=== PATIENT | female | born 1990 | race Caucasian/White ===

== ENCOUNTER → 2016-05-11 | Outpatient (CLI) | payer MEDICAID ==
[~2016-05-11] MED LIST: BLOOD GLUCOSE T1 TES; FLUC150T PO; GLYB2.5T3 PO; IBUP-232 PO; LANC1MIS74; METF500T PO; MILKSUS PO; ONETKIT; OXYC1TAB63 PO; PREN1CAP20; SENN1TAB PO
== END ==
LOC: CDED 08:18
PROVIDERS: ATTEND Obstetrics & Gynecology
DX: O24.419 Gestational diabetes mellitus in pregnancy, unspecified control (principal)
CPT/HCPCS: 97802

== ENCOUNTER → 2016-05-18 | Outpatient (CLI) | payer MEDICAID | LOC: HPND 08:00 | PROVIDERS: ATTEND Obstetrics & Gynecology | DX: O24.410 Gestational diabetes mellitus in pregnancy, diet controlled (principal); Z3A.00 Weeks of gestation of pregnancy not specified | CPT/HCPCS: 76816 ==

== ENCOUNTER 2016-07-23 14:33 | Inpatient (IN) | payer MEDICAID ==
[2016-07-23] VITALS (30 sets, daily range): BP systolic 102–143; BP diastolic 54–93; PULSE 65–91; RESP 16–20; TEMP 98.3–98.7
[~2016-07-23 14:33] MED LIST changes: -FLUC150T PO; -IBUP-232 PO; -METF500T PO; -OXYC1TAB63 PO; -SENN1TAB PO
[2016-07-23] MEDS ORDERED: LACTATED RINGER'S 1000 ML INJ 1,000 ML IV PRN (15:28)
[2016-07-23] MEDS ORDERED: LACTATED RINGER'S 1000 ML INJ 1,000 ML IV SCH (15:28)
[2016-07-23] MEDS ORDERED: SODIUM CHLORID 0.9% 500 ML INJ 500 ML IV PRN (15:30)
[2016-07-23] MEDS ORDERED: OXYTOCIN 30 UNITS-500ML PREMIX 500 ML IV ONE (15:30)
[2016-07-23] MEDS ORDERED: LIDOCAINE HCL 1% 50 ML VIAL I-DERMAL PRN (15:30)
[2016-07-23] MEDS ORDERED: MINERAL OIL 10 ML VIAL TOPICAL PRN (15:30)
[2016-07-23] MEDS ORDERED: ONDANSETRON HCL 4 MG/2 ML VIAL IV PRN (15:30)
[2016-07-23] MEDS ORDERED: CITRIC ACID-SODIUM CITRATE LIQ 30 ML UDC PO SCH (15:30)
[2016-07-23] MEDS ORDERED: LIDOCAINE HCL 1% 50 ML VIAL INFIL PRN (15:30)
--- NOTE | 2016-07-23 15:32 | PD ---
HPI Chief Complaint contractions Date Seen: Jul 23, 2016 Travel History International Travel<30 Days: No Contact w/Intl Traveler<30Days: No Known Affected Area: No History of Present Illness HPI 25 yo @ 39w4d with LOIS 07-26-2016. care with [facility]. complicated by GDM. She is diet controlled, but takes Glyburide PRN at night. She had normal testing and recent US with EFW 6+lbs. Presents with c/o contractions for past few hours, every 5 min now. No LOF, VB. +FM. GBS negative. History Past Medical History Narrative Medical GDM this only Obstetric History Obstetric History uncomplicated, 8lb 10oz SAB x 1 Past Surgical History Narrative Surgical appendectomy Family History Family History: Negative Social History Alcohol Use: No Tobacco Use: No Substance Abuse: No Allergies-Medications (Allergen,Severity, Reaction): Coded Allergies: Ceclor (Verified Allergy, Unknown, unknown rxn, 07/23/16) Home Meds Active Scripts Glyburide 2.5 Mg Tab2.5 Mg PO DAILY #30 TAB Ref 0 Take with meals at the same time each day Prov:Demarcus Moreland MD 06/28/16 Blood Glucose Test Strips 1 Molly Molly #100 EA .ROUTE DIRECTED Ref 0 Prov:Candace Lewis CNMP 06/08/16 Onetouch Ultra Mini W/Device 1 Kit Kit #1 KIT .ROUTE DIRECTED Ref 0 Prov:Candace Lewis CNM 05/11/16 Onetouch Delica Lancets E 1 Mis Mis #100 EA .ROUTE DIRECTED Ref 3 Prov:Candace Lewis CNMP 05/11/16 Reported Medications Magnesium Hydroxide Liq (Milk of Magnesia Liq)400 Mg/5 Ml Susp30 Ml PO Q6H PRN ( CONSTIPATION) #1 BOTTLE Ref 0 06/28/16 W/O Vit A W/ Fe Carbo (Prenate Mini 18-0.6-0.4-350 mg)1 Cap Cap 02/16/16 Review of Systems General / Constitutional: No: Fever, Chills HENT: No: Headaches, Lightheadedness Cardiovascular: No: Irregular Rhythm, Chest Pain or Discomfort, Palpitations Respiratory: No: Cough, Short of Breath Gastrointestinal: Abdominal Pain (contractions), No: Nausea, Vomiting, Diarrhea Genitourinary: No: Urgency, Frequency, Dysuria Musculoskeletal: No: Limited ROM, Weakness Skin: No Rash, No Itching, No Lesions Neurologic: No: Focal Abnormalities, Coordination Problem Psychiatric: No: Anxiety, Depression Physical Exam Vital Signs Date Time Temp Pulse Resp B/P Pulse Ox O2 Delivery O2 Flow Rate FiO2 07/23/16 14:52 84 131/76 07/23/16 14:51 16 07/23/16 14:51 98.3 Narrative GENERAL: Well-nourished, well-developed patient. SKIN: Warm and dry. HEAD: Normocephalic and atraumatic. EYES: No scleral icterus. No injection or drainage. ENT: No nasal drainage noted. Mucous membranes pink. Airway patent. NECK: No JVD. CARDIOVASCULAR: Regular rate RESPIRATORY: No accessory muscle use. ABDOMEN/GI: Abdomen soft, non-tender, no rebound, no guarding Gravid EFW 3500g GENITOURINARY: External Genitalia: intact and normal in appearance SVE 4-5cm/60%/-3 prior; exam 3cm in clinic TOCO: q 5 min. Palpate moderate FHT's: Category: I Baseline: 135 Reactive: +accelerations Variability: mod Decels: [-] EXTREMITIES: No cyanosis or edema. BACK: Nontender without obvious deformity. Normal ROM NEUROLOGICAL: Awake and alert. Motor and sensory grossly within normal limits.Normal speech. Data Data Vital Signs Reviewed: Yes Orders Vital Signs (Adult) .ON ADMISSION (07/23/16 14:38) ^ Labor Status (07/23/16 14:38) ^ Non Stress Test (07/23/16 14:38) Urinalysis - C+S If Indicated (07/23/16 15:11) Ob (2e) Additional Admit Info (07/23/16 15:11) Admit To Inpatient (07/23/16 ) Code Status (07/23/16 15:28) Vital Signs (Adult) .Per protocol (07/23/16 15:28) Activity Oob Ad Sofi (07/23/16 15:28) Heart (07/23/16 15:28) Amnioinfusion (07/23/16 15:28) Urinary Catheter Management .ONCE (07/23/16 15:28) Diet Liquid (07/23/16 Dinner) Lactated Ringer's 1000 Ml Inj (Lr 1000 M (07/23/16 15:28) Lactated Ringer's 1000 Ml Inj (Lr 1000 M (07/23/16 15:28) Sodium Chlorid 0.9% 500 Ml Inj (Ns 500 M (07/23/16 15:30) Sodium Chlor 0.9% 1000 Ml Inj (Ns 1000 M (07/23/16 15:48) Lidocaine 1% Inj (50 Ml) (Xylocaine 1% I (07/23/16 15:30) Citric Acid-Sodium Citrate Liq (Bicitra (07/23/16 15:30) Ondansetron Inj (Zofran Inj) (07/23/16 15:30) Fentanyl Inj (Fentanyl Inj) (07/23/16 15:30) Fentanyl Inj (Fentanyl Inj) (07/23/16 15:30) Complete Blood Count With Diff (07/23/16 15:28) Hold Clot (07/23/16 15:28) Abo/Rh Blood Type (07/23/16 15:28) Resp Oxygen Non Rebreathe Mask (07/23/16 ) ^ Epidural / Intrathecal Infus (07/23/16 15:28) Oxytocin 30 Units-500ml Premix (Pitocin (07/23/16 15:30) Lidocaine 1% Inj (50 Ml) (Xylocaine 1% I (07/23/16 15:30) Light Mineral Oil (Muri-Lube Oil) (07/23/16 15:30) Inpatient Certification (07/23/16 ) Bedside Glucose DENA.AC&HS (07/23/16 15:28) Labs Vital Signs Date Time Temp Pulse Resp B/P Pulse Ox O2 Delivery O2 Flow Rate FiO2 07/23/16 14:52 84 131/76 07/23/16 14:51 16 07/23/16 14:51 98.3 MDM Medical Record Reviewed: Yes Narrative Course / MDM 39 weeks GDM Early active labor CAT I FHT Plan Admit Expectant management Bedside Glucose - 109 Epidural when indicated Patient Instructions: General Instructions Departure Forms: Tests/Procedures Kathy Bess MD Jul 23, 2016 15:32
--- NOTE | 2016-07-23 15:41 | HHI.HP ---
History & Physical H&P HPI HPI Chief Complaint contractions Date Seen: Jul 23, 2016 Travel History International Travel<30 Days: No Contact w/Intl Traveler<30Days: No Known Affected Area: No History of Present Illness HPI 25 yo @ 39w4d with LOIS 07-26-2016. care with [facility]. complicated by GDM. She is diet controlled, but takes Glyburide PRN at night. She had normal testing and recent US with EFW 6+lbs. Presents with c/o contractions for past few hours, every 5 min now. No LOF, VB. +FM. GBS negative. History (Limited) History Past Medical History Narrative Medical GDM this only Obstetric History Obstetric History uncomplicated, 8lb 10oz SAB x 1 Past Surgical History Narrative Surgical appendectomy Family History Family History: Negative Social History Alcohol Use: No Tobacco Use: No Substance Abuse: No Allergies-Medications Allergies-Medications (Allergen,Severity, Reaction): Coded Allergies: Ceclor (Verified Allergy, Unknown, unknown rxn, 07/23/16) Home Meds Active Scripts Glyburide 2.5 Mg Tab2.5 Mg PO DAILY #30 TAB Ref 0 Take with meals at the same time each day Prov:Demarcus Moreland MD 06/28/16 Blood Glucose Test Strips 1 Molly Molly #100 EA .ROUTE DIRECTED Ref 0 Prov:Candace Lewis CNMP 06/08/16 Onetouch Ultra Mini W/Device 1 Kit Kit #1 KIT .ROUTE DIRECTED Ref 0 Prov:Candace Lewis CNM 05/11/16 Onetouch Delica Lancets E 1 Mis Mis #100 EA .ROUTE DIRECTED Ref 3 Prov:Candace Lewis CNMP 05/11/16 Reported Medications Magnesium Hydroxide Liq (Milk of Magnesia Liq)400 Mg/5 Ml Susp30 Ml PO Q6H PRN ( CONSTIPATION) #1 BOTTLE Ref 0 06/28/16 W/O Vit A W/ Fe Carbo (Prenate Mini 18-0.6-0.4-350 mg)1 Cap Cap 02/16/16 ROS Review of Systems General / Constitutional: No: Fever, Chills HENT: No: Headaches, Lightheadedness Cardiovascular: No: Irregular Rhythm, Chest Pain or Discomfort, Palpitations Respiratory: No: Cough, Short of Breath Gastrointestinal: Abdominal Pain (contractions), No: Nausea, Vomiting, Diarrhea Genitourinary: No: Urgency, Frequency, Dysuria Musculoskeletal: No: Limited ROM, Weakness Skin: No Rash, No Itching, No Lesions Neurologic: No: Focal Abnormalities, Coordination Problem Psychiatric: No: Anxiety, Depression Physical Exam Physical Exam Vital Signs Date Time Temp Pulse Resp B/P Pulse Ox O2 Delivery O2 Flow Rate FiO2 07/23/16 14:52 84 131/76 07/23/16 14:51 16 07/23/16 14:51 98.3 Narrative GENERAL: Well-nourished, well-developed patient. SKIN: Warm and dry. HEAD: Normocephalic and atraumatic. EYES: No scleral icterus. No injection or drainage. ENT: No nasal drainage noted. Mucous membranes pink. Airway patent. NECK: No JVD. CARDIOVASCULAR: Regular rate RESPIRATORY: No accessory muscle use. ABDOMEN/GI: Abdomen soft, non-tender, no rebound, no guarding Gravid EFW 3500g GENITOURINARY: External Genitalia: intact and normal in appearance SVE 4-5cm/60%/-3 prior; exam 3cm in clinic TOCO: q 5 min. Palpate moderate FHT's: Category: I Baseline: 135 Reactive: +accelerations Variability: mod Decels: [-] EXTREMITIES: No cyanosis or edema. BACK: Nontender without obvious deformity. Normal ROM NEUROLOGICAL: Awake and alert. Motor and sensory grossly within normal limits.Normal speech. Data Data Data Vital Signs Reviewed: Yes Orders Vital Signs (Adult) .ON ADMISSION (07/23/16 14:38) ^ Labor Status (07/23/16 14:38) ^ Non Stress Test (07/23/16 14:38) Urinalysis - C+S If Indicated (07/23/16 15:11) Ob (2e) Additional Admit Info (07/23/16 15:11) Admit To Inpatient (07/23/16 ) Code Status (07/23/16 15:28) Vital Signs (Adult) .Per protocol (07/23/16 15:28) Activity Oob Ad Sofi (07/23/16 15:28) Heart (07/23/16 15:28) Amnioinfusion (07/23/16 15:28) Urinary Catheter Management .ONCE (07/23/16 15:28) Diet Liquid (07/23/16 Dinner) Lactated Ringer's 1000 Ml Inj (Lr 1000 M (07/23/16 15:28) Lactated Ringer's 1000 Ml Inj (Lr 1000 M (07/23/16 15:28) Sodium Chlorid 0.9% 500 Ml Inj (Ns 500 M (07/23/16 15:30) Sodium Chlor 0.9% 1000 Ml Inj (Ns 1000 M (07/23/16 15:48) Lidocaine 1% Inj (50 Ml) (Xylocaine 1% I (07/23/16 15:30) Citric Acid-Sodium Citrate Liq (Bicitra (07/23/16 15:30) Ondansetron Inj (Zofran Inj) (07/23/16 15:30) Fentanyl Inj (Fentanyl Inj) (07/23/16 15:30) Fentanyl Inj (Fentanyl Inj) (07/23/16 15:30) Complete Blood Count With Diff (07/23/16 15:28) Hold Clot (07/23/16 15:28) Abo/Rh Blood Type (07/23/16 15:28) Resp Oxygen Non Rebreathe Mask (07/23/16 ) ^ Epidural / Intrathecal Infus (07/23/16 15:28) Oxytocin 30 Units-500ml Premix (Pitocin (07/23/16 15:30) Lidocaine 1% Inj (50 Ml) (Xylocaine 1% I (07/23/16 15:30) Light Mineral Oil (Muri-Lube Oil) (07/23/16 15:30) Inpatient Certification (07/23/16 ) Bedside Glucose DENA.AC&HS (07/23/16 15:28) Labs Vital Signs Date Time Temp Pulse Resp B/P Pulse Ox O2 Delivery O2 Flow Rate FiO2 07/23/16 14:52 84 131/76 07/23/16 14:51 16 07/23/16 14:51 98.3 MDM MDM Medical Record Reviewed: Yes Narrative Course / MDM 39 weeks GDM Early active labor CAT I FHT Plan Admit Expectant management Bedside Glucose - 109 Epidural when indicated Patient Instructions: General Instructions Departure Forms: Tests/Procedures Kathy Bess MD Jul 23, 2016 15:32 Kathy Bess MD Jul 23, 2016 15:41
[2016-07-23] MEDS ORDERED: SODIUM CHLOR 0.9% 1000 ML INJ 1,000 ML IV PRN (15:48)
[2016-07-23 15:56] LABS: BLOOD, URINE NEG (NEG); COMMENT (UR) CULT NOT INDICATED; CULTURE IF INDICATED CULT NOT INDICATED; GLUCOSE,URINE NEG (NEG); KETONE, URINE NEG (NEG); NITRITE,URINE NEG (NEG); PH, URINE 6.5 (5.0-8.5); SQUAMOUS EPITHELIAL CELL URINE 1 /hpf (0-5); URINE COLOR LIGHT-YELLOW (YELLW/STRAW)
[2016-07-23 16:03] LABS: AUTOMATED NEUTROPHIL # 11.7 TH/MM3 (1.8-7.7); BASOPHIL % 0.3 % (0.0-2.0); EOSINOPHIL % 0.2 % (0.0-4.0); HEMATOCRIT 35.5 % (35.0-46.0); HEMO FLAGS DIFF FINAL; LYMPH % 12.4 % (9.0-44.0); LYMPHOCYTE # 1.7 TH/MM3 (1.0-4.8); MEAN CELL VOLUME 86.8 FL (80.0-100.0); MEAN CORPUSCULAR HEMOGLOBIN 29.7 PG (27.0-34.0); MEAN CORPUSCULAR HGB CONC 34.2 % (32.0-36.0); MONO % 4.2 % (0.0-8.0); NEUT % 82.9 % (16.0-70.0); PLATELET COUNT 299 TH/MM3 (150-450); RED BLOOD COUNT 4.09 MIL/MM3 (4.00-5.30); RED CELL DISTRIBUTION WIDTH 13.9 % (11.6-17.2); WHITE BLOOD COUNT 14.1 TH/MM3 (4.0-11.0)
[2016-07-23] MEDS ORDERED: OXYTOCIN 30 UNITS-500ML PREMIX 500 ML IV SCH (19:00)
--- NOTE | 2016-07-23 19:00 | PD.LABORPN ---
Subjective Subjective Mother in no acute distress. Has been walking intermittently for the last two hours and bouncing on stability ball. Feels contractions q10 minutes. Feels baby move. Would like epidural when appropriate. (Kelsey Parr MD R1) Objective Vital Signs Vital Signs Date Time Temp Pulse Resp B/P Pulse Ox O2 Delivery O2 Flow Rate FiO2 07/23/16 15:52 82 135/77 07/23/16 14:52 84 131/76 07/23/16 14:51 16 07/23/16 14:51 98.3 Objective Pelvic Exam: Dilatation: 5 Effacement: 70 Station: -2 Presentation: vertex Membranes: intact Uterine Contractions: q 7-12 minutes FHT's: Category: 1 Baseline: 140 Reactive: yes Variability: moderate Decels: no (Kelsey Parr MD R1) Assessment/Plan Problem List: (1) Intrauterine (2) Gestational diabetes Assessment and Plan -Cervical exam /-2, unruptured -Continue routine care -Accu-checks ACHS for gestational diabetic -Start Pitocin 2-230 -Plan for AROM in a few hours, pending progress on pitocin Seen and discussed with Dr. Mehta Discussed with Dr. Otero (Kelsey Parr MD R1) Assessment and Plan Pitocin augmentation. CAT I FHT Agree with plan of care. (Kathy Bess MD) Kelsey Parr MD R1 Jul 23, 2016 19:00 Kathy Bess MD Jul 23, 2016 20:55
[2016-07-23] MEDS ORDERED: fentaNYL 2MCG-BUPIV 0.125% INJ 100 ML ONE (20:35)
--- NOTE | 2016-07-23 21:55 | PD.LABORPN ---
Subjective Subjective Patient resting comfortably in bed. Epidural in place; pain is better controlled. Patient was informed of AROM procedure for labor augmentation and agreed. AROM successful with clear amniotic fluid. (Darrius Mcpherson MD R1) Objective Vital Signs Vital Signs Date Time Temp Pulse Resp B/P Pulse Ox O2 Delivery O2 Flow Rate FiO2 07/23/16 21:30 83 128/86 07/23/16 21:25 70 128/72 07/23/16 21:21 68 07/23/16 21:21 20 07/23/16 21:21 139/82 07/23/16 21:21 98.7 07/23/16 21:19 134/72 07/23/16 21:15 143/66 07/23/16 21:13 18 07/23/16 21:13 65 132/64 07/23/16 21:10 76 07/23/16 21:10 114/83 07/23/16 21:06 140/93 07/23/16 21:04 79 07/23/16 21:04 141/69 07/23/16 20:55 87 07/23/16 20:52 20 07/23/16 20:50 81 07/23/16 15:52 82 135/77 07/23/16 14:52 84 131/76 07/23/16 14:51 16 07/23/16 14:51 98.3 Objective Pelvic Exam: Cervix: midposition Dilatation: 6cm Effacement: 80% Station: -2 Presentation: vertex Membranes: now ruptured s/p AROM Uterine Contractions: irregular FHT's: Category: I Baseline: 130s Reactive: yes Variability: mod Decels: none (Darrius Mcpherson MD R1) Assessment/Plan Problem List: (1) Intrauterine (2) Gestational diabetes Assessment and Plan 25 year old @ 39w4d with LOIS 07-26-2016 admitted in active labor. 1. IUP - Category I tracing - Cervix 6/80/-2, vertex presentation - S/p AROM, fluids were clear - Accu-checks ACHS for gestational diabetes - Continue Pitocin per protocol - Epidural in place - GBS negative - Continue expectant management sdw Drs. Bess and Tyson (Darrius Mcpherson MD R1) Assessment and Plan AROM, clear fluid s/p MAVIS Continue with pitocin augmentation (Kathy Bess MD) Darrius Mcpherson MD R1 Jul 23, 2016 21:55 Kathy Bess MD Jul 24, 2016 02:18
[2016-07-23] MEDS ORDERED: ePHEDrine/NS 25 MG/5 ML SYR IV PRN (22:15)
[2016-07-23] MEDS ORDERED: DO NOT ADMINISTER ANTICOAGULANTS PRN (22:15)
[2016-07-23] MEDS ORDERED: fentaNYL 2MCG-BUPIV 0.125% 100 ML EPIDURAL SCH ×2 (22:15)
[2016-07-23] MEDS ORDERED: NO SYSTEM NARCOTICS PRN (22:15)
[2016-07-23] MEDS ORDERED: BUPIVACAINE HCL PF 0.25% 10 ML VIAL ONE (22:17)
[2016-07-24] VITALS (18 sets, daily range): BP systolic 110–141; BP diastolic 57–93; PULSE 61–109; RESP 16–20; TEMP 97.9–98.9
--- NOTE | 2016-07-24 01:10 | PD.OB.DELI ---
Delivery Date: Jul 24, 2016 Anesthesia: Epidural Episiotomy: None Vaginal Delivery: Normal, Spontaneous Presentation: Occiput anterior Nuchal Cord: None Delayed cord clamping (45 sec): No : Female One Minute : 9 Five Minute : 9 Weight: 3195g Placenta: Spontaneous delivery, Intact, 3 vessel cord Laceration: No lacerations Additional Information 25 year old now delivered vaginally over an intact perineum, apgars were 9/ 9. weight of 3195 grams. Placenta delivered spontaneously intact with 3- vessel cord. EBL < 500 cc. (Darrius Mcpherson MD R1) Additional Information @ 39 weeks, presented in early labor. GBS negative. A2GDM, well controlled. Pitocin augmented, MAVIS for anesthesia. AROM with clear fluid. Uncomplicated over intact peridium. Placenta spontaneous and intact, grossly normal. EBL 200ml. (Kathy Bess MD) Darrius Mcpherson MD R1 Jul 24, 2016 01:10 Kathy Bess MD Jul 24, 2016 02:20
[2016-07-24] MEDS ORDERED: BENZOCAINE 20% TOPICAL SPRAY 60 ML CAN TOPICAL PRN (01:15)
[2016-07-24] MEDS ORDERED: ONDANSETRON ODT 4 MG TAB PO PRN (01:15)
[2016-07-24] MEDS ORDERED: SODIUM CHLORIDE 0.9% FLUSH 10 ML FLUSH IV FLUSH PRN (01:15)
[2016-07-24] MEDS ORDERED: WITCH HAZEL 50%/GLYCERIN 12.5% 40 PAD JAR TOPICAL PRN (01:15)
[2016-07-24] MEDS ORDERED: ALUMINUM/MAGNESIUM/SIMETH 30 ML CUP PO PRN (01:15)
[2016-07-24] MEDS ORDERED: ACETAMINOPHEN 325 MG TAB PO PRN (01:15)
[2016-07-24] MEDS ORDERED: SODIUM CHLORIDE 0.9% FLUSH 10 ML FLUSH IV FLUSH SCH (01:15)
[2016-07-24] MEDS ORDERED: ZOLPIDEM TARTRATE 5 MG TAB PO PRN (01:15)
[2016-07-24] MEDS ORDERED: OXYTOCIN 30 UNITS-500ML PREMIX 500 ML IV ONE (01:15)
[2016-07-24] MEDS: DOCUSATE SODIUM 50 MG/SENNA 8.6 MG TAB PO PRN ×2 (07:42→20:04)
[2016-07-24] MEDS: IBUPROFEN 600 MG TAB PO PRN ×3 (07:42→22:07)
[2016-07-24] MEDS ORDERED: oxyCODONE/ACETAMINOPHEN 5 MG/325 MG TAB PO PRN (10:00)
[2016-07-24] MEDS: oxyCODONE/ACETAMINOPHEN 5 MG/325 MG TAB PO PRN ×3 (10:23→20:05)
[2016-07-24] MEDS ORDERED: DIPHTH/TETANUS/ACEL PERTUSSIS (BOOSTER) 0.5 ML VIAL/PFS IM ONE (16:00)
[2016-07-24] MEDS ORDERED: MEASLES, MUMPS, RUBELLA VACCINE 0.5 ML VIAL SQ ONE (16:00)
[2016-07-25] MEDS: oxyCODONE/ACETAMINOPHEN 5 MG/325 MG TAB PO PRN ×3 (00:42→11:06)
[2016-07-25] MEDS: IBUPROFEN 600 MG TAB PO PRN ×2 (04:32→11:06)
--- NOTE | 2016-07-25 07:15 | HHI.OB ---
Subjective Post Day: 1 Remarks day #1. AFVSS overnight. Pain well-controlled. Decreased lochia. Denies dysuria. She is feeding the baby via breast. Appetite good. No nausea or vomiting. Endorses flatus. No bowel movement. Ambulating well. Denies calf pain, shortness of breath, or cough. Otherwise, she is doing well this morning and has no other complaints. (Jerald Pitts MD R1) Objective Vitals/I&O Vital Signs Date Time Temp Pulse Resp B/P Pulse Ox O2 Delivery O2 Flow Rate FiO2 07/24/16 20:00 98.1 61 18 131/68 07/24/16 18:55 98.4 07/24/16 18:55 109 119/75 07/24/16 18:50 84 18 125/77 07/24/16 07:25 97.9 73 16 123/77 Objective Remarks GENERAL: Well-nourished, well-developed patient. CARDIOVASCULAR: Regular rate and rhythm without murmurs, gallops, or rubs. RESPIRATORY: Breath sounds equal bilaterally. No accessory muscle use. ABDOMEN/GI: Abdomen soft, non-tender. Fundus: Firm, non-tender at umbilicus. GENITOURINARY: Light to moderate bleeding. EXTREMITIES: No cyanosis or edema, non-tender, without signs of DVT. Medications and IVs Current Medications Medications (Trade) Dose Ordered Sig/Lui Route Start Time Stop Time Status Last Admin (NS Flush) 2 ml BID IV FLUSH 07/24/16 01:15 (NS Flush) 2 ml UNSCH PRN IV FLUSH 07/24/16 01:15 (Tylenol) 650 mg Q4H PRN PO 07/24/16 01:15 (Motrin) 600 mg Q6H PRN PO 07/24/16 01:15 07/25/16 04:32 (Americaine 20% Top Spr) 1 spray Q4H PRN TOPICAL 07/24/16 01:15 (Tucks Pads) 1 applic QID PRN TOPICAL 07/24/16 01:15 (Lacey-Colace) 2 tab Q12H PRN PO 07/24/16 01:15 07/24/16 20:04 (Ambien) 5 mg HS PRN PO 07/24/16 01:15 (Mag-Al Plus Susp Liq) 15 ml Q8H PRN PO 07/24/16 01:15 (Zofran Odt) 4 mg Q6H PRN PO 07/24/16 01:15 (Percocet 5-325 Mg) 1 tab Q4H PRN PO 07/24/16 10:00 07/25/16 04:31 (Percocet 5-325 Mg) 2 tab Q4H PRN PO 07/24/16 10:00 (Jerald Pitts MD R1) Assessment/Plan Problem List: (1) Intrauterine (2) Gestational diabetes Assessment and Plan 25y/o who is PPD#1 s/p . -Continue routine care. -Percocet and Motrin PRN pain. -Encouraged OOB. Advised pelvic rest for 6 wks. -Will need a f/u appt. within 6 wks. -Re: ctrl, she is undecided -D/c today/tomorrow wdw OB attending (Jerald Pitts MD R1) Collaborating MD Comments I agree with management plans and have discussed this patient with resident team. (Shani Vicente MD) Jerald Pitts MD R1 Jul 25, 2016 07:15 Shani Vicente MD Jul 25, 2016 09:21
[2016-07-25] MEDS: DOCUSATE SODIUM 50 MG/SENNA 8.6 MG TAB PO PRN (11:06)
--- NOTE | 2016-07-25 13:17 | HHI.DCPOC ---
Discharge Care Plan Diagnosis: (1) care and examination Report Symptoms to Your Doctor -Temperate above 100.5 degrees -Unusual pain or calf pain -Increased vaginal bleeding -Painful or difficulty urinating -Feelings of extreme sadness or anxiety after 2 weeks Goals to Promote Your Health * To prevent worsening of your condition and complications * To maintain your health at the optimal level Directions to Meet Your Goals Take your medications as prescribed Follow your dietary instruction Follow activity as directed Ensure plenty of rest for recovery Drink fluids for hydration Keep your appointments as scheduled Take your immunizations and boosters as scheduled If your symptoms worsen call your PCP, if no PCP go to Urgent Care Center or Emergency Room Smoking is Dangerous to Your Health. Avoid second hand smoke Call the 24-hour crisis hotline for domestic abuse at Kyree Gonsalez MD R2 Jul 25, 2016 13:17
[2016-07-25] MEDS ORDERED: IBUP-232 PO (13:18)
[2016-07-25] MEDS ORDERED: SENN1TAB PO (13:18)
[2016-07-25] MEDS ORDERED: OXYC1TAB63 PO (14:10)
[2016-09-11] MEDS ORDERED: FLUC150T PO ×2 (11:58→13:21)
== END 2016-07-25 14:37 | disposition home or self-care (01) | DRG 775 ==
LOC: HOBED 14:33 → H2EB 15:12 → H1EA 07-24 03:57
PROVIDERS: ADMIT Obstetrics & Gynecology; ATTEND Obstetrics & Gynecology
PROC: 10907ZC Drainage of Amniotic Fluid, Therapeutic from Products of Conception, Via Natural or Artificial Opening (ICD-10-PCS; 2016-07-23)
PROC: 00HU33Z Insertion of Infusion Device into Spinal Canal, Percutaneous Approach (ICD-10-PCS; 2016-07-23)
PROC: 3E0R3CZ (ICD-10-PCS; 2016-07-23)
PROC: 10E0XZZ Delivery of Products of Conception, External Approach (ICD-10-PCS; principal; 2016-07-24)
DX: O24.425 Gestational diabetes mellitus in childbirth, controlled by oral hypoglycemic drugs (principal); Z88.1 Allergy status to other antibiotic agents; Z37.0 Single live birth; Z3A.39 39 weeks gestation of pregnancy
CPT/HCPCS: 59025; 81001; 85025; 86900; 86901; 90715; J2590; J7120